=== PATIENT | male | born 1955 | race Caucasian/White ===

== ENCOUNTER → 2017-11-23 | Outpatient (CLI) | payer OTHER ==
[~2017-11-23] MED LIST: IOPAMIDOL 370 MG/ML 200 ML INFUS..BTL INJ ONE; LOPID600 MG PO; NAPROXEN SODIU220 MG PO; SODIUM CHLORIDE 0.9% 250ML 250 ML ONE; SODIUM CHLORIDE 0.9% 50ML 50 ML ONE
[2017-11-23 08:17] LABS: BLOOD UREA NITROGEN 20 mg/dL (7-26); BUN/CREATININE RATIO 19 (6-25); CREATININE, SERUM 1.04 mg/dL (0.72-1.25); EST GLOMERULAR FILTRATION RATE > 60 ML/MIN (60-)
--- NOTE | 2017-11-23 09:49 | Diagnostic Imaging Report ---
PROCEDURE: CT ABDOMEN \T\ PELVIS W/WO CONTRAST TECHNIQUE: The abdomen and pelvis were scanned utilizing a multidetector helical scanner from the diaphragm to the lesser trochanter before and after the IV administration of 150 cc of Isovue 370 and the oral administration of water. Imaging was performed in the prone position per CT urogram protocol. Coronal and sagittal multiplanar reformations were obtained. COMPARISON: None. INDICATIONS: HEMATURIA FINDINGS: LOWER THORAX: Normal. HEPATOBILIARY: No focal hepatic lesions. No biliary ductal dilatation. Gallbladder is unremarkable. SPLEEN: No splenomegaly. PANCREAS: No focal masses or ductal dilatation. ADRENALS: No adrenal nodules. KIDNEYS/URETERS: Precontrast images show no renal, ureteral, or bladder calculi. There is a 1.3 cm exophytic simple cyst (average internal attenuation less than 10 Hounsfield units on pre-and postcontrast phases) projecting from the interpolar left kidney. Additional sub-centimeters hypoattenuating foci within both kidneys are too small to further characterize though likely represent additional small cysts. Excretory phase images show no filling defects within the upper collecting systems. The distal right ureter and mid segment of the left ureter are unopacified presumably related to peristalsis. No extraluminal abnormal soft tissue is appreciated. PELVIC ORGANS/BLADDER: The urinary bladder is incompletely distended but otherwise unremarkable. Prostate and seminal vesicles appear normal. PERITONEUM / RETROPERITONEUM: No ascites or pneumoperitoneum. LYMPH NODES: No pelvic sidewall, retroperitoneal, or mesenteric lymphadenopathy. VESSELS: Atherosclerotic calcification of the abdominal aorta, major branch vessels, and iliac arterial systems without aneurysmal dilatation. The hepatic artery proper is replaced to the superior mesenteric artery. Portal vein, splenic vein, and central superior mesenteric vein are patent. GI TRACT: The large bowel shows no evidence of distention or wall thickening. The sigmoid colon is collapsed and poorly evaluated. The appendix is normal. The stomach is collapsed with prominence of the rugal folds. No small bowel dilatation to suggest obstruction. BONES AND SOFT TISSUES: Small fat-containing umbilical hernia. Otherwise no focal soft tissue abnormalities. Bone island in the right ischial tuberosity. Multilevel degenerative disc changes of the lower lumbar spine. Healed fracture deformities of the left sixth rib partially visualized. IMPRESSION: No urolithiasis or other CT urographic abnormality to explain the patient's history of hematuria. Dictated by: Anish Osborne M.D. on 11/23/2017 at 9:56 Electronically approved by: Anish Osborne M.D. on 11/23/2017 at 9:56
== END ==
LOC: CT 07:21
PROVIDERS: ATTEND Family Medicine
DX: R31.9 Hematuria, unspecified (principal)
CPT/HCPCS: 36415; 74178; 82565; 84520; J7050; Q9967

== ENCOUNTER → 2018-01-18 | Day surgery (SDC) | payer OTHER ==
[2018-01-17 11:23] LABS: BASOPHILS % 0.2 % (0.0-1.0); EOSINOPHILS # (AUTO) 0.1 (0.0-0.4); EOSINOPHILS % 2.2 % (0.0-6.0); HEMOGLOBIN 12.8 g/dL (14.0-18.0); LYMPHOCYTES # (AUTO) 2.1 (1.0-3.2); LYMPHOCYTES % 46.9 % (18.0-39.1); MEAN CORPUSCULAR HEMOGLOBIN 29.4 pg (28-32); MEAN CORPUSCULAR HGB CONC 32.8 g/dL (31-35); MEAN CORPUSCULAR VOLUME 89.4 fL (81-99); MONOCYTES # (AUTO) 0.5 (0.2-0.8); MONOCYTES % 10.3 % (4.4-11.3); NEUTROPHILS # (AUTO) 1.8 (2.1-6.9); PLATELET COUNT 200 x10e3/uL (140-360); RED BLOOD COUNT 4.36 x10e6/uL (4.3-5.7); RED CELL DISTRIBUTION WIDTH 13.2 % (11.7-14.4)
[2018-01-17 11:33] LABS: INR 0.95; PROTHROMBIN TIME 13.5 seconds (11.9-14.5)
[2018-01-17 11:38] LABS: BLOOD UREA NITROGEN 18 mg/dL (7-26); BUN/CREATININE RATIO 17 (6-25); CALCIUM 9.9 mg/dL (8.4-10.2); CARBON DIOXIDE 28 mmol/L (22-29); CHLORIDE 103 mmol/L (98-107); CREATININE, SERUM 1.04 mg/dL (0.72-1.25); EST GLOMERULAR FILTRATION RATE > 60 ML/MIN (60-); GLUCOSE 110 mg/dL (74-118); SODIUM 141 mmol/L (136-145)
[~2018-01-18] MED LIST changes: +CEFTRIAXONE SOD 1 GM VIAL ONE; +DEXAMETHASONE SOD PHOS INJ 4 MG/ML VIAL ONE; +FENTANYL CITRATE/PF 100MCG/2 ML INJ ONE; +GENTAMICIN 80MG/NS 100 ML 200 ML IV ONE; -IOPAMIDOL 370 MG/ML 200 ML INFUS..BTL INJ ONE; +IOPAMIDOL 610MG/1ML 300 MG/ML VIAL IV ONE; +LIDOCAINE HCL 2% LOCAL INJ 5 ML SDV VIAL INJ ONE; +LIPITOR20 MG; +LISINOPRIL2.5 MG PO; +MIDAZOLAM HCL 2 MG/2 ML VIAL ONE; +ONDANSETRON HCL INJ 2 MG/ML VIAL ONE; +PROPOFOL IV EMULSION 10 MG/ML 20 ML VIAL ONE; +SEVOFLURANE INHAL SOLN 250 ML PEN BTL ONE; -SODIUM CHLORIDE 0.9% 250ML 250 ML ONE; -SODIUM CHLORIDE 0.9% 50ML 50 ML ONE; +SUBOXONE 2 MG-1 EAC2; +SUDAFED 12 HOU120 MG PO
--- OUTSIDE RECORDS SUMMARY | 2018-01-18 07:58 | XMS REPORT ---
Author Author [facility] Address Unknown Phone Unavailable Care Team Providers Care Ict Help Desk Technician Name Role Phone CHIKA NG Unavailable Unavailable Problems This patient has no known problems. Allergies, Adverse Reactions, Alerts This patient has no known allergies or adverse reactions. Medications This patient has no known medications. Results Test Description Test Time Test Comments Text Results Atomic Results Result Comments US GUIDANCE FOR VASCULAR ACCES 2017-12-27 16:10:00 [place] [address] Patient Name: FRANKY MISHRA V MR #: [id number] : 1955 Age/Sex: 62/M Req #: [id number] Adm Physician: Ordered by: CHIKA NG MD, MD Report #: [id number] Location: [place] Room/Bed: Procedure: [id number] US/US GUIDANCE FOR VASCULAR ACCES Exam Date: 11/23/17 Exam Time: 0856 REPORT STATUS: Signed PROCEDURE: US GUIDANCE FOR VASCULAR ACCESS COMPARISON: None. INDICATIONS: Poor Venous Access FINDINGS: Ultrasound evaluation of potential access sites was performed. After successfully identifying a patent vessel, US guidance was used to puncture the vein. A permanent recording was created for the patient record. CONCLUSION: Successful IV access by Ultrasound guidance. Dictated by: NICKY CONDE M.D. on 12/27/2017 at 16:10 Electronically approved by: NICKY CONDE M.D. on 12/27/2017 at 16:10 Dictated By: NICKY CONDE MD 09 Transcribed By: SHAWN on 12/27/17 161 COPY TO: CHIKA NG CT ABDOMEN/PELVIS WOW 2017-11-23 09:56:00 [place] [address] Patient Name: FRANKY MISHRA V MR #: [id number] : 1955 Age/Sex: 61/M Req #: [id number] Adm Physician: Ordered by: CHIKA NG MD, MD Report #: [id number] Location: CT Room/Bed: Procedure: CT/CT ABDOMEN/PELVIS WOW Exam Date: Exam Time: REPORT STATUS: Signed PROCEDURE: CT ABDOMEN T PELVIS W/WO CONTRAST TECHNIQUE: The abdomen and pelvis were scanned utilizing a multidetector helical scanner from the diaphragm to the lesser trochanter before and after the IV administration of 150 cc of Isovue 370 and the oral administration of water. Imaging was performed in the prone position per CT urogram protocol. Coronal and sagittal multiplanar reformations were obtained. COMPARISON: None. INDICATIONS: HEMATURIA FINDINGS: LOWER THORAX: Normal. HEPATOBILIARY: No focal hepatic lesions. No biliary ductal dilatation. Gallbladder is unremarkable. SPLEEN: No splenomegaly. PANCREAS: No focal masses or ductal dilatation. ADRENALS: No adrenal nodules. KIDNEYS/URETERS: Precontrast images show no renal, ureteral, or bladder calculi. There is a 1.3 cm exophytic simple cyst (average internal attenuation less than 10 Hounsfield units on pre-and postcontrast phases) projecting from the interpolar left kidney. Additional sub-centimeters hy poattenuating foci within both kidneys are too small to further characterize though likely represent additional small cysts. Excretory phase images show no filling defects within the upper collecting systems. The distal right ureter and mid segment of the left ureter are unopacified presumably related to peristalsis. No extraluminal abnormal soft tissue is appreciated. PELVIC ORGANS/BLADDER: The urinary bladder is incompletely distended but otherwise unremarkable. Prostate and seminal vesicles appear normal. PERITONEUM / RETROPERITONEUM: No ascites or pneumoperitoneum. LYMPH NODES: No pelvic sidewall, retroperitoneal, or mesenteric lymphadenopathy. VESSELS: Atherosclerotic calcification of the abdominal aorta, major branch vessels, and iliac arterial systems without aneurysmal dilatation. The hepatic artery proper is replaced to the superior mesenteric artery. Portal vein, splenic vein, and central superior mesenteric vein are patent. GI TRACT: The large bowel shows no evidence of distention or wall thickening. The sigmoid colon is collapsed and poorly evaluated. The appendix is normal. The stomach is collapsed with prominence of the rugal folds. No small bowel dilatation to suggest obstruction. BONES AND SOFT TISSUES: Small fat-containing umbilical hernia. Otherwise no focal soft tissue abnormalities. Bone island in the right ischial tuberosity. Multilevel degenerative disc changes of the lower lumbar spine. Healed fracture deformities of the left sixth rib partially visualized. IMPRESSION: No urolithiasis or other CT urographic abnormality to explain the patient's history of hematuria. Dictated by: Pooja Kerr M.D. on 11/23/2017 at 9:56 Electronically approved by: Pooja Kerr M.D. on 11/23/2017 at 9:56 Dictated By: POOJA KERR MD 5 Transcribed By: SHAWN on 11/23/17 09 COPY TO: CHIKA NG
--- OUTSIDE RECORDS SUMMARY | 2018-01-18 07:58 | XMS REPORT | Clinical Summary ---
Author Author [facility] Address Unknown Phone Unavailable Care Team Providers Care Breadman Name Role Phone Hayes Au MD PCP Allergies No Known Allergies Current Medications Prescription Sig. Disp. Refills Start End Date Status Date lisinopril TK 1 T PO QD 1 04/21/19 Active (PRINIVIL,ZESTRIL) 20 mg 17 tablet atorvastatin (LIPITOR) 20 TK 1 T PO D 1 04/21/19 Active MG tablet 17 gemfibrozil (LOPID) 600 TK 1 T PO BID 1 04/21/19 Active MG tablet 17 naproxen (NAPROSYN) 250 Take 250 mg by mouth 2 Active MG tablet (two) times a day as needed for mild pain. sodium,potassium,mag Used As directed 2 Bottle 0 06/03/19 Active sulfates (SUPREP BOWEL 17 PREP KIT) 17.5-3.13-1.6 gram recon solnIndications: Hx of colonic polyps Active Problems Problem Noted Date Hx of colonic polyps 06/02/2016 Gastroesophageal reflux disease without esophagitis 06/02/2016 Non morbid obesity due to excess calories 06/02/2016 Encounters Date Type Specialty Care Team Description 12/27/2017 Hospital Radiology Rafael Blackwell, Hematuria syndrome; Encounter Benign localized hyperplasia of prostate with urinary retention 12/15/2017 Transcribe Access Rafael Blackwell, Hematuria syndrome Orders (Primary Dx); Benign localized hyperplasia of prostate with urinary retention after 01/17/2017 Family History Medical History Relation Name Comments No Known Problems Brother Prostate cancer Father No Known Problems Maternal Aunt No Known Problems Maternal Grandfather No Known Problems Maternal Grandmother No Known Problems Maternal Uncle No Known Problems Mother No Known Problems Paternal Aunt No Known Problems Paternal Grandfather No Known Problems Paternal Grandmother No Known Problems Paternal Uncle No Known Problems Sister Collins's esophagus Neg Hx Breast cancer Neg Hx Celiac disease Neg Hx Cirrhosis Neg Hx Colon cancer Neg Hx Colon polyps Neg Hx Crohn's disease Neg Hx Cystic fibrosis Neg Hx Eating disorder Neg Hx Esophageal cancer Neg Hx GERD Neg Hx QUALITY REVIEW TRAINER Cancer Neg Hx Hemochromatosis Neg Hx Inflammatory bowel Neg Hx disease Irritable bowel syndrome Neg Hx Liver cancer Neg Hx Liver disease Neg Hx Pancreatic cancer Neg Hx Pancreatitis Neg Hx Rectal cancer Neg Hx Stomach cancer Neg Hx Ulcerative colitis Neg Hx Relation Name Status Comments Brother Father Maternal Aunt Maternal Grandfather Maternal Grandmother Maternal Uncle Mother Alive Paternal Aunt Paternal Grandfather Paternal Grandmother Paternal Uncle Sister Social History Tobacco Use Types Packs/Day Years Used Date Never Smoker Alcohol Use Drinks/Week oz/Week Comments Yes Sex Assigned at Date Recorded Not on file Last Filed Vital Signs Not on file Plan of Treatment Health Maintenance Due Date Last Done Comments COLON CANCER SCREENING 2004 SHINGRIX VACCINE (#1) 2004 ZOSTER VACCINE 2014 INFLUENZA VACCINE 10/19/2017 Procedures Procedure Name Priority Date/Time Associated Diagnosis Comments PROSTATE Routine 12/27/2017 Hematuria syndrome Results for this 1:26 PM CDT Benign localized procedure are in the hyperplasia of prostate results section. with urinary retention after 01/17/2017 Results * US Prostate (12/27/2017 1:26 PM) Narrative Performed At PROCEDURE: PROSTATE [facility] CLINICAL HISTORY:R31.9 Hematuriaunspecified, N40.1 Benign prostatic hyperplasia with lower urinary tract symptoms, r31.9 n40.1 COMPARISON:None. TECHNIQUE: A transrectal examination of the prostate gland was performed in transverse and sagittal views with color-flow Doppler interrogation. The seminal vesicles were also interrogated. FINDINGS: The prostate gland measures 5.8 cm x 5.2 cm x 3.6 cm for volume of 55.6 mL. The peripheral zone is homogeneous. No focal lesions are identified. Heterogeneity in echotexture is demonstrated of the central zone with calcification of the prostate at the junction of the central and peripheral zone. A small cystic area is demonstrated measuring 5.5 mm in the lateral right central zone. The seminal vesicles are not well-visualized to allow comment. IMPRESSION: Abnormal study. Benign prostatic hyperplasia. No focal lesions are identified in the peripheral zone. Limited assessment of the seminal vesicles. [id number] . Procedure Note Interface, Radiology Results Incoming - 12/27/2017 6:05 PM CDT PROCEDURE: US PROSTATE CLINICAL HISTORY: R31.9 Hematuria unspecified, N40.1 Benign prostatic hyperplasia with lower urinary tract symptoms, r31.9 n40.1 COMPARISON: None. TECHNIQUE: A transrectal examination of the prostate gland was performed in transverse and sagittal views with color-flow Doppler interrogation. The seminal vesicles were also interrogated. FINDINGS: The prostate gland measures 5.8 cm x 5.2 cm x 3.6 cm for volume of 55.6 mL. The peripheral zone is homogeneous. No focal lesions are identified. Heterogeneity in echotexture is demonstrated of the central zone with calcification of the prostate at the junction of the central and peripheral zone. A small cystic area is demonstrated measuring 5.5 mm in the lateral right central zone. The seminal vesicles are not well-visualized to allow comment. IMPRESSION: Abnormal study. Benign prostatic hyperplasia. No focal lesions are identified in the peripheral zone. Limited assessment of the seminal vesicles. [id number] . Performing Organization Address City/State/Zipcode Phone Number [facility] [address] [place] [address] after 01/17/2017 Insurance Payer Benefit Subscriber ID Type Phone Address Plan / Group [employer] CIGDREW OPEN xxxxxxxxxxx [facility] [place] [address]
[2018-01-18 12:10] VITALS: BP 135/84
--- NOTE | 2018-01-18 13:14 | Operative Report ---
DATE OF PROCEDURE: January 18, 2018 PREOPERATIVE DIAGNOSES 1. Benign prostatic hypertrophy. 2. Rule out carcinoma of the prostate. 3. Total gross painless hematuria. 4. Abnormal prostate-specific antigen of 5.45. POSTOPERATIVE DIAGNOSES 1. Benign prostatic hypertrophy. 2. Rule out carcinoma of the prostate. 3. Total gross painless hematuria. 4. Abnormal prostate-specific antigen of 5.45. OPERATIONS 1. Transrectal ultrasound of the prostate. 2. Transrectal ultrasound-guided needle biopsies. 3. Cystourethroscopy and bilateral retrograde pyelogram. 4. Fulguration of prostatic bleeders. HYGIENE ASSISTANT: Dr. Galdamez. ANESTHETIC: General. Mr. Mendoza is a 62-year-old male who presented with a chief complaint of lower urinary tract obstructive symptoms and was also noted to have total gross painless hematuria. His PSA was 5.45. CT scan abdomen and pelvis with contrast material was unremarkable. This patient was placed on the table in the lithotomy position and was prepped and draped in a sterile manner after satisfactory anesthesia. Transrectal ultrasound of the prostate was done, and it was noted that the prostate measured 3.12 x 4.14 x 4.38 with a total volume of 29.97 mL. There were multiple hypoechoic areas and multiple calcifications with post-calcification shadowing. The prostate gland, however, was very irregular. Transrectal ultrasound-guided needle biopsies were obtained, and multiple biopsies were obtained from the hypoechoic area and also from the normal-appearing prostate to map it for any multifocal carcinoma. This patient was then prepped and draped in a sterile manner. A #23 Setswana cystoscope was used, and cystourethroscopy was performed and it was noted that the urethra was normal. The prostatic urethra was about 3 to 3.5 cm long, bilobar but very irregular and bleeding on the surface. Cystoscopy was then performed using both right angle and the Foroblique lens, and it was noted that the bladder mucosa was normal. There was no evidence of gross tumor, pathology, or any papillary lesions. The bladder wall was moderately trabeculated. Right retrograde pyelogram was then performed using a #8 bulb-tip ureteral catheter inserted at the right ureteral orifice, and 5 mL of contrast material was injected. The retrograde performed was normal. Left retrograde pyelogram was performed similarly and was normal. The bladder was drained, cystoscope removed. Plans for this patient are to be placed on Levaquin 750 mg once a day for 1 week. Ultracet tablet 1 every 6 hours p.r.n. and was given 30. He is to return to the office in 1 week when at that time results of the biopsy will be back. Job#: [id number] EV
== END | disposition home or self-care (01) ==
LOC: OR 07:55
PROVIDERS: ATTEND Specialist
DX: C61 Malignant neoplasm of prostate (principal); N40.1 Benign prostatic hyperplasia with lower urinary tract symptoms; N32.89 Other specified disorders of bladder; I10 Essential (primary) hypertension; I45.10 Unspecified right bundle-branch block; I44.0 Atrioventricular block, first degree; R00.1 Bradycardia, unspecified; F17.220 Nicotine dependence, chewing tobacco, uncomplicated; Z01.810 Encounter for preprocedural cardiovascular examination
CPT/HCPCS: 36415; 52005; 55700; 74420; 76872; 80048; 85025; 85610; 88305; 88342; 93005; C1758; J0696; J1100; J1580; J2001; J2250; J2405; J2704; Q9967; 76942; 76998

== ENCOUNTER → 2020-08-07 | Outpatient (CLI) | payer BC ==
[~2020-08-07] MED LIST changes: -CEFTRIAXONE SOD 1 GM VIAL ONE; -DEXAMETHASONE SOD PHOS INJ 4 MG/ML VIAL ONE; -FENTANYL CITRATE/PF 100MCG/2 ML INJ ONE; -GENTAMICIN 80MG/NS 100 ML 200 ML IV ONE; -IOPAMIDOL 610MG/1ML 300 MG/ML VIAL IV ONE; -LIDOCAINE HCL 2% LOCAL INJ 5 ML SDV VIAL INJ ONE; -MIDAZOLAM HCL 2 MG/2 ML VIAL ONE; -ONDANSETRON HCL INJ 2 MG/ML VIAL ONE; -PROPOFOL IV EMULSION 10 MG/ML 20 ML VIAL ONE; -SEVOFLURANE INHAL SOLN 250 ML PEN BTL ONE
== END ==
LOC: MRI 12:45
PROVIDERS: ATTEND Specialist
DX: S83.222A Peripheral tear of medial meniscus, current injury, left knee, initial encounter (principal); S83.221A Peripheral tear of medial meniscus, current injury, right knee, initial encounter

== ENCOUNTER → 2021-03-16 | Outpatient (CLI) | payer BC | LOC: RAD 11:14 | PROVIDERS: ATTEND Family Medicine | DX: Z01.810 Encounter for preprocedural cardiovascular examination (principal) | CPT/HCPCS: 71046 ==

== ENCOUNTER → 2021-04-02 | Day surgery (SDC) | payer BC ==
[~2021-04-02] MED LIST changes: +ACETAMINOPHEN/CODEINE 300MG - 30MG TAB ONE; +BUPIVACAINE HCL 0.5% INJ 30 ML VIAL INJ ONE; +DEXAMETHASONE SOD PHOS INJ 4 MG/ML SDV ONE; +FENTANYL CITRATE/PF 100MCG/2 ML INJ ONE; +LIDOCAINE HCL 2% LOCAL INJ 5 ML SDV VIAL INJ ONE; -LIPITOR20 MG; +LIPITOR20 MG PO; +MIDAZOLAM HCL 2 MG/2 ML VIAL ONE; +OMEPRAZOLE40 MG PO; +ONDANSETRON HCL INJ 2MG/ML 2ML 2 MG/ML VIAL ONE; +POVIDONE IODINE 0.05% 0.05 % ML PO ONE; +PROPOFOL IV EMULSION 10 MG/ML 20 ML VIAL ONE; +SEVOFLURANE INHAL SOLN 250 ML PEN BTL ONE; +SODIUM CHLORIDE 0.9% 50ML 100 ML ONE
[2021-04-02 13:15] VITALS: BP 114/71
== END | disposition home or self-care (01) ==
LOC: OR 08:32
PROVIDERS: ATTEND Specialist
DX: S83.221A Peripheral tear of medial meniscus, current injury, right knee, initial encounter (principal); S83.281A Other tear of lateral meniscus, current injury, right knee, initial encounter; M17.0 Bilateral primary osteoarthritis of knee; M22.41 Chondromalacia patellae, right knee; S83.222A Peripheral tear of medial meniscus, current injury, left knee, initial encounter; S83.262A Peripheral tear of lateral meniscus, current injury, left knee, initial encounter; C78.00 Secondary malignant neoplasm of unspecified lung; C79.51 Secondary malignant neoplasm of bone; C77.9 Secondary and unspecified malignant neoplasm of lymph node, unspecified; M10.9 Gout, unspecified; I44.0 Atrioventricular block, first degree; I44.4 Left anterior fascicular block; I10 Essential (primary) hypertension; E78.5 Hyperlipidemia, unspecified; K21.9 Gastro-esophageal reflux disease without esophagitis; K29.70 Gastritis, unspecified, without bleeding; X58.XXXA Exposure to other specified factors, initial encounter; Z01.812 Encounter for preprocedural laboratory examination; Z20.822 Contact with and (suspected) exposure to COVID-19; Z79.899 Other long term (current) drug therapy; Z85.46 Personal history of malignant neoplasm of prostate; Z92.21 Personal history of antineoplastic chemotherapy; Z92.3 Personal history of irradiation; Z86.19 Personal history of other infectious and parasitic diseases
CPT/HCPCS: 29880; J0690; J1100; J2001; J2250; J2405; J2704; J3010; U0002

== ENCOUNTER → 2021-06-10 | Day surgery (SDC) | payer BC ==
[2021-06-08 12:36] LABS: BASOPHILS % 0.4 % (0.0-1.0); EOSINOPHILS # (AUTO) 0.1 (0.0-0.4); EOSINOPHILS % 4.3 % (0.0-6.0); HEMATOCRIT 37.3 % (38.2-49.6); HEMOGLOBIN 11.5 g/dL (14.0-18.0); LYMPHOCYTES # (AUTO) 0.5 (1.0-3.2); LYMPHOCYTES % 23.4 % (18.0-39.1); MEAN CORPUSCULAR HEMOGLOBIN 28.5 pg (28-32); MEAN CORPUSCULAR HGB CONC 30.8 g/dL (31-35); MEAN CORPUSCULAR VOLUME 92.3 fL (81-99); MONOCYTES # (AUTO) 0.4 (0.2-0.8); MONOCYTES % 15.2 % (4.4-11.3); NEUTROPHILS # (AUTO) 1.3 (2.1-6.9); NEUTROPHILS % 55.4 % (38.7-80.0); PLATELET COUNT 208 x10e3/uL (140-360); RED BLOOD COUNT 4.04 x10e6/uL (4.3-5.7); RED CELL DISTRIBUTION WIDTH 13.5 % (11.7-14.4)
[2021-06-08 12:51] LABS: ANION GAP 14.4 mmol/L (8-16); CALCIUM 9.1 mg/dL (8.4-10.2); CREATININE, SERUM 0.94 mg/dL (0.72-1.25); POTASSIUM 4.4 mmol/L (3.5-5.1)
[~2021-06-10] MED LIST changes: -ACETAMINOPHEN/CODEINE 300MG - 30MG TAB ONE; -FENTANYL CITRATE/PF 100MCG/2 ML INJ ONE; +KETOROLAC TROMETHAMINE 30 MG/ML VIAL ONE; -MIDAZOLAM HCL 2 MG/2 ML VIAL ONE; -SODIUM CHLORIDE 0.9% 50ML 100 ML ONE
[2021-06-10 10:07] VITALS: BP 126/78
== END | disposition home or self-care (01) ==
LOC: OR 06:28
PROVIDERS: ATTEND Specialist
DX: S83.222A Peripheral tear of medial meniscus, current injury, left knee, initial encounter (principal); M17.0 Bilateral primary osteoarthritis of knee; M67.52 Plica syndrome, left knee; M22.42 Chondromalacia patellae, left knee; M10.9 Gout, unspecified; I10 Essential (primary) hypertension; K29.70 Gastritis, unspecified, without bleeding; K21.9 Gastro-esophageal reflux disease without esophagitis; X58.XXXA Exposure to other specified factors, initial encounter; Z01.812 Encounter for preprocedural laboratory examination; Z20.822 Contact with and (suspected) exposure to COVID-19; Z79.899 Other long term (current) drug therapy; Z85.46 Personal history of malignant neoplasm of prostate; Z86.19 Personal history of other infectious and parasitic diseases
CPT/HCPCS: 29881; 36415; 80048; 85025; U0002; J1100; J1885; J2001; J2405